=== PATIENT | female | born 1970 | race Caucasian/White ===

== ENCOUNTER 2023-09-04 22:54 | Emergency (ER) | payer OTHER, SELFPAY ==
[2023-09-04 23:04] VITALS: BP 162/98
--- NOTE | 2023-09-04 23:48 | ED.GENMED ---
History of Present Illness
<CLARENCE Baig - Last Filed: 09/05/23 01:44>
General
Chief Complaint: Fall
Source: patient and family
Time Seen by Provider: 09/04/23 23:48
Travel History
Have you had any contact with someone who has COVID-19?: No
Do you have any symptoms of coronavirus? Fever > 100 degrees, chills, cough, shortness of breath, sore throat, loss of taste or smell, muscle aches, or headache?: No
History of Present Illness
History of Present Illness:
Pt os a 52 year old female with a PMHx of diabetes presenting for a fall while at work at approximately 8:30 pm. She states she fell to her left side when trying to open a door and hit or head and her left upper body as she fell. She reports mild
headache and pins and needles from her left elbow down to her fingers. While she notes her headache is mild she feels as though her pain overall is a 10/10. She denies LOC, dizziness, N/V, vision changes, or numbness. She denies any allergies and
notes the only medication she currently take is Tizanidine PRN for her back. She notes she has chronic stage 3 kidney failure and does not follow with a PCP or record cutter. She states she believes her last A1C was 8.9 at 4 years ago but has not
been managing it as she has been uninsured. pt consumes alcohol occasionally and smokes a 1/2 PPD x 30 years. She denies TDAP within last 10 years.
Past History
<CLARENCE Baig - Last Filed: 09/05/23 01:44>
Past History
ED Past Medical History: NIDDM
Social History
Tobacco: Smoker
Alcohol: Occasional
Review of Systems
<CLARENCE Baig - Last Filed: 09/05/23 01:44>
Review of Systems
Allergies reviewed?: Yes
All Other Systems: Not applicable
Constitutional: Reports fatigue
EENT: Reports no symptoms
Respiratory: Reports no symptoms
Cardiac: Reports no symptoms
ABD/GI: Reports no symptoms
: Reports no symptoms
Musculoskeletal: Reports muscle pain and other (left arm and lateral neck soreness)
Skin: Reports no symptoms
Neurological: Reports no symptoms and headache (mild)
Endocrine: Reports no symptoms
Hematologic/Lymphatic: Reports no symptoms
Psychiatric: Reports no symptoms
Phy Exam
<CLARENCE Baig - Last Filed: 09/05/23 01:44>
General Physical Exam
General Presentation: well appearing and no apparent distress
General age: appears stated age
General Skin: warm and dry
General Habitus: normal
General Mental: alert
ENT Exam
ENT Exam: EOMI, neck supple and other (small hematoma on head at location of trauma)
Eye Exam
Eye Exam: PERRL, EOMI and cornea clear
Cardiovascular Exam
Cardiovascular Exam: regular rate/rhythm, no edema, no gallop, no murmur and normal peripheral pulses
Pulmonary Exam
Pulmonary Exam: lungs clear, no respiratory distress and chest non tender
Neurological Exam
Neurological Exam: alert, oriented x3, no sensory deficits, speech normal and cerebellum intact
Mental
Mental Status: oriented to person, oriented to place, oriented to time and responds to voice
Sensory
Sensory Exam: intact
Musculoskeletal Exam
Musculoskeletal Exam: full ROM and no edema
Skin Exam
Skin Exam: normal color, warm/dry, laceration (left scalp) and other (abrasion of left elbow)
Psychiatric Exam
Psychiatric Exam: normal mood/affect
Course
<CLARENCE Baig - Last Filed: 09/05/23 01:44>
Orders/Labs/Results
Orders:
Orders
09/05/23 00:18
Bedside Glucose- Treatment ONCE
Tetanus/Diphth/Acelpertussis [Adacel] 0.5 ml IM .ONCE ONE
Elbow, 3 view, Left [CR Elbow - Left Min 3 Views ] Urgent
Comment:
Reason For Exam: fall, left lateral elbow contusion, pain
09/05/23 00:19
CT Head W/o Iv Contrast Urgent
Comment:
Reason For Exam: fall, left parietal head trauma, headache
Abnormal Lab Results
09/05/23
01:31
POC Glucose 369 H mg/dl
(70-99)
Vital Signs
Initial and Last Documented VS:
Initial Vital Signs
Temp Pulse Resp BP Pulse Ox
97.5 F 100 16 162/98 100
09/04/23 23:04 09/04/23 23:04 09/04/23 23:04 09/04/23 23:04 09/04/23 23:04
Last Documented Vital Signs
Temp Pulse Resp BP Pulse Ox
97.5 F 100 16 162/98 100
09/04/23 23:04 09/04/23 23:04 09/04/23 23:04 09/04/23 23:04 09/04/23 23:04
<Laura Moulton, DO - Last Filed: 09/05/23 02:48>
Orders/Labs/Results
Orders:
Orders
09/05/23 00:18
Bedside Glucose- Treatment ONCE
Tetanus/Diphth/Acelpertussis [Adacel] 0.5 ml IM .ONCE ONE
Elbow, 3 view, Left [CR Elbow - Left Min 3 Views ] Urgent
Comment:
Reason For Exam: fall, left lateral elbow contusion, pain
09/05/23 00:19
CT Head W/o Iv Contrast Urgent
Comment:
Reason For Exam: fall, left parietal head trauma, headache
Abnormal Lab Results
09/05/23
01:31
POC Glucose 369 H mg/dl
(70-99)
Vital Signs
Initial and Last Documented VS:
Initial Vital Signs
Temp Pulse Resp BP Pulse Ox
97.5 F 100 16 162/98 100
09/04/23 23:04 09/04/23 23:04 09/04/23 23:04 09/04/23 23:04 09/04/23 23:04
Last Documented Vital Signs
Temp Pulse Resp BP Pulse Ox
97.5 F 100 16 162/98 100
09/04/23 23:04 09/04/23 23:04 09/04/23 23:04 09/04/23 23:04 09/04/23 23:04
<CLARENCE Baig - Last Filed: 09/05/23 01:44>
*Critical Care Note
Total Time (30-74mins, 75-104mins- exclusive of procedures): Not Applicable
<Laura Moulton DO - Last Filed: 09/05/23 02:48>
*Radiology
Radiology exam reviewed: preliminary read by ED provider (Left elbow x-rays negative for fracture.) and radiology read reviewed (CT of the head shows no acute intracranial traumatic findings. There is a small left parietal scalp hematoma.)
*Pulse Oximetry
Patient hypoxic: no
ED Attending Note
<CLARENCE Baig - Last Filed: 09/05/23 01:44>
-
Portions of this chart may have been created with voice recognition software.� Occasional wrong word or��sound alike� substitutions may have occurred due to the inherent limitations of voice recognition software.
<Laura Moulton DO - Last Filed: 09/05/23 02:48>
ED Attending Note
Patient seen and examined by attending physician: Yes
I performed the substantive portion of visit, reviewed & personally made and approve the management plan that is documented in note by myself or LAVERN.: Yes
I performed a history and physical exam of patient and discussed management with resident, I reviewed resident's note and agree with documented findings and plan of care.: Yes
ED Attending Note:
This is a 52-year-old woman who has longstanding history of diabetes as well as chronic kidney disease. Had been following with PCP and nephrology and due to chronic GI intolerance to metformin her diabetes had been treated with insulin.
Unfortunately she has not followed up with her PCP over the past few years due to lack of healthcare coverage until most recently. She has been receiving sporadic refills of tizanidine for intermittent low back pain but other than this takes no
medicines on a daily basis.
While at work tonight at [employer] she was attempting to close sliding doors and while doing so she slipped and fell onto her left side striking the left side of her head and her left elbow. She denies loss of consciousness, was able to get up and has
been ambulatory since incident. She complains of left-sided head pain with local contusion as well as left elbow and arm pain. She denies neck pain or back pain. No weakness nor numbness. She denies nausea nor vomiting, no chest pain or
palpitations no shortness of breath, no abdominal pain.
She is unsure as to her last Tdap believes this was many years ago.
TRAUMA EXAM:
VITAL SIGNS: Vital signs reviewed, cooperative
DISTRESS: No active disease
EYES: Pupils reactive, no orbital trauma
NOSE: No deformity or epistaxis
FACE AND SCALP: There is a superficial abrasion with soft tissue contusion left parietal scalp with mild to moderate local tenderness to palpation. External canals no blood
NECK: Supple nontender, full range of motion without difficulty nor pain.
BACK: Back nontender, pelvis stable to compression
RESPIRATORY: No distress, breath sounds normal, no tender chest wall
CARDIAC: No murmur, pulses equal and strong
ABDOMEN: Soft nontender bowel sounds normal
SKIN: Skin intact no bleeding, color normal
EXTREMITIES: Superficial abrasion left posterior lateral elbow with mild local tenderness to palpation. There is no soft tissue swelling. Full elbow range of motion with mildly increased pain with internal and external rotation. There is no
tenderness to the forearm nor upper arm nor wrist nor shoulder.
NEUROLOGICAL: Alert, oriented, no motor deficits. Gait is osborn and steady.
PSYCH: Mood affect normal
Patient suffered a slip and fall, left parietal head injury and left elbow contusion.
Will check CT of the head as well as left elbow x-ray.
Will update Tdap.
Parietal scalp abrasion superficial, no indication for suture repair.
Patient has longstanding history of poorly controlled diabetes, chronic kidney disease but overall nontoxic in appearance. Appears euvolemic. Denies recent weight loss or gain.
Recently obtained healthcare coverage and patient has been urged to promptly follow-up with her PCP for recheck of diabetes, chronic kidney disease and resume her medications.
09/05/2023 0247 AM
Patient continues to appear comfortable, ambulatory about exam room with steady unaided gait.
CT of the head is unremarkable as is left elbow x-ray.
Accu-Chek elevated at 369.
She remains mildly hypertensive. She does admit to significant labs and multiple medications but cannot recall the names of these medicines.
Patient has been urged to probably touch base with her PCP for follow-up of diabetes, hypertension, chronic kidney disease.
Due to history of chronic kidney disease recommend she avoid NSAIDs and instead take Tylenol as needed for pain. I have also written a prescription for a few tramadol for as needed moderate pain.
Note to be out of work over the next several days with plan to return on September 08.
Encouraged to follow-up with work health provider for recheck.
Discharge Plan
Departure
Patient Disposition: Home (Routine Discharge)
Date of Disposition: 09/05/23
Time of Disposition: 02:30
Patient with high blood pressure during this ER visit?: Yes
Condition: Good
Discharge Problem:
left parietal scalp contusion, Contusion of left elbow, initial encounter, Poorly controlled diabetes mellitus
Instructions: High Blood Sugar, Adult (DC), Head Injury in Adults (DC), Contusion (DC), Skin Abrasions (DC), Tdap vaccine, BLOOD PRESSURE
Prescriptions:
New
tramadol 50 mg tablet
50 mg PO BID PRN (Reason: Pain) Qty: 10 0RF
Referrals:
NONE,* [Family Provider] -
Stand Alone Forms: Return to Work
Activity Restrictions/Additional Instructions:
You may take Tylenol every 4 hours as needed for pain. A few tramadol have been prescribed for as needed moderate pain.
With prior history of kidney disease, recommend you avoid NSAIDs such as ibuprofen, Aleve, Advil.
Follow-up with your work health provider on Thursday for recheck.
I strongly urged you to follow-up with your primary care physician for recheck of diabetes, kidney disease, etc.
Interventions
Interventions:
*Risk Screen - Suicide Last Done: 09/04/23 23:04
*General Assessment Last Done: 09/04/23 23:04
*Neglect/Abuse Screening Last Done: 09/04/23 23:04
ED-Musculoskeletal Assessment Last Done: 09/05/23 00:20
ED- Neurological Assessment Last Done: 09/05/23 00:20
ED-Skin Assessment Last Done: 09/05/23 00:20
[2023-09-05] MEDS: ADACEL 0.5 ML IM (00:53)
[2023-09-05 01:32] LABS: Glucose - Point of Care 369 mg/dl (70-99)
[2023-09-05] MEDS: TYLENOL 1000 MG PO (02:43)
[2023-09-05 02:44] VITALS: BP 171/90
== END 2023-09-05 02:50 | disposition home or self-care (01) ==
LOC: EMR 22:54
PROVIDERS: EMERGENCY PHYSICIAN Emergency Medicine
DX: S00.03XA Contusion of scalp, initial encounter (principal); S50.02XA Contusion of left elbow, initial encounter; S09.90XA Unspecified injury of head, initial encounter; E11.22 Type 2 diabetes mellitus with diabetic chronic kidney disease; E11.65 Type 2 diabetes mellitus with hyperglycemia; W19.XXXA Unspecified fall, initial encounter; Y99.0 Civilian activity done for income or pay; Z23 Encounter for immunization; F17.210 Nicotine dependence, cigarettes, uncomplicated
CPT/HCPCS: 99284; 90471; 70450; 73080; 82962; 90715

== ENCOUNTER 2024-11-07 14:39 | Inpatient (IN) | payer OTHER, SELFPAY ==
[2024-11-07 10:34] VITALS: BP 160/80
[2024-11-07] MEDS: MAXIPIME 2000 MG IV ×2 (12:06→20:16)
[2024-11-07 12:13] VITALS: BP 156/70
[2024-11-07 12:13] LABS: % Basophils 0.9 % (0-2); % Eosinophils 1.2 % (0-6); % Immature Granulocytes 0.2 % (0-0.5); % Lymphocytes 25.4 % (20.5-51.1); % Monocytes 5.6 % (1.7-9.3); % Neutrophils 66.7 % (42.2-75.2); Absolute Basophils 0.1 10^3/uL (0-0.2); Absolute Eosinophils 0.1 10^3/uL (0-0.7); Absolute Lymphocytes 1.7 10^3/uL (1.2-3.4); Absolute Monocytes 0.4 10^3/uL (0.1-0.6); Absolute Neutrophils 4.4 10^3/uL (1.4-6.5); Hematocrit 39.2 % (37.0-47.0); Hemoglobin 13.5 g/dL (12.0-16.0); Mean Corp Hgb Conc. 34.4 g/dL (33.0-37.0); Mean Corpuscular Hgb 28.4 pg (27.0-31.0); Mean Corpuscular Volume 82.4 fL (81.0-99.0); Mean Platelet Volume 9.8 fL (7.4-10.4); Nucleated Red Blood Cells % 0 %; Platelet Count 265 10^3/uL (130-400); Red Blood Cell Count 4.76 10^6/uL (4.20-5.40); Red Cell Dist. Width 12.9 % (11.5-14.5); White Blood Cell Count 6.7 10^3/uL (4.8-10.8)
[2024-11-07] MEDS: VANCOCIN 530 MG IV (12:13)
[2024-11-07 12:24] LABS: Lactic Acid 0.8 mmol/L (0.7-2.0)
[2024-11-07 12:50] LABS: ALT (SGPT) 32 U/L (0-35); AST (SGOT) 24 U/L (14-36); Alkaline Phosphatase 116 U/L (38-126); Blood Urea Nitrogen 18 mg/dl (7-17); Calcium 9.1 mg/dl (8.4-10.2); Carbon Dioxide 28 mmol/L (22-30); Chloride 101 mmol/L (98-107); Estimated Creatinine Clearance 61 ml/min; Glucose 454 mg/dl (70-99); Sodium 134 mmol/L (135-145); Total Protein 7.3 g/dl (6.3-8.2); eGFR > 60.00
[2024-11-07 13:00] VITALS: BP 154/80
--- NOTE | 2024-11-07 13:20 | ED.GENMED ---
History of Present Illness
General
Chief Complaint: Skin Problem
Source: patient and family
Time Seen by Provider: 11/07/24 11:18
History of Present Illness
History of Present Illness:
54-year-old female initially diabetes who presents with redness in her right foot into her right leg. Patient states she was cutting her right great toe toenail recently and then noticed some inflammation that started around the great toe. She now
notices redness of her foot. Patient states that the redness got much worse starting yesterday. Patient admits that she has been off of her diabetes medications because became too expensive. She does not check her blood sugar regularly. Family
states that she has not been on the medications.
Past History
Past History
ED Past Medical History: NIDDM
ED Past Surgical History: Cholecystectomy
Social History
Tobacco: Smoker
Alcohol: Occasional
Phy Exam
Physical Exam
Physical Exam:
CONSTITUTIONAL Vital signs reviewed, Patient alert and oriented to person, place and time. Well-appearing
HEAD atraumatic, normocephalic.
EYES eyelids normal to inspection, Extraocular muscles intact, Conjunctiva normal, Sclera normal.
NECK normal range of motion, Trachea midline, no jugular venous distention.
RESP no respiratory distress
BACK No obvious deformities
UPPER EXTREMITY Gross Range of motion normal, gross motor strength normal
LOWER EXTREMITY Gross range of motion normal, Gross motor strength normal. There is redness surrounding the right great toe with some skin scaling at the base of the eponychium. There is redness that extends up the dorsum of the foot into the
right lower extremity to the mid stein. There is slight warmth.
NEURO Speech normal, No focal motor deficits include, Ana coma scale 15, Memory normal, Cranial Nerves intact to screening exam.
SKIN Skin warm, dry, and normal in color.
PSYCHIATRIC Patient oriented to person place and time, Normal affect.
Course
Orders/Labs/Results
Orders:
Orders
11/07/24 11:45
Cefepime HCl [Maxipime] 2,000 mg IV NOW STA
11/07/24 11:46
Vancomycin [Vancocin] 1,500 mg 0.9% Sodium Chloride 500 ml [Nss] 500 ml IV NOW
11/07/24 11:53
Sterile Water [Sterile Water For Injection] 10 ml .ROUTE .STK-MED ONE
11/07/24 12:02
Complete Blood Count/With Diff Urgent
Comprehensive Metabolic Panel Urgent
Lactic Acid Q4H
Comment: CANCEL 2nd LACTIC ACID IF 1st LACTIC ACID IS LESS THAN 2
Blood Culture Q30M
OCTAVIO Source: Blood/Venous
Specimen Description:
Blood Culture Q30M
OCTAVIO Source: Blood/Venous
Specimen Description:
11/07/24 13:20
0.9% Sodium Chloride 1000 ml [Nss] 1,000 ml IV BOLUS
Insulin Aspart [NOVOLOG vial] 8 units SC NOW STA
11/07/24 15:45
Lactic Acid Q4H
Comment: CANCEL 2nd LACTIC ACID IF 1st LACTIC ACID IS LESS THAN 2
Abnormal Lab Results
11/07/24
12:02
Sodium 134 L mmol/L
(135-145)
BUN 18 H mg/dl
(7-17)
Glucose 454 H* mg/dl
(70-99)
11/07/24 12:02
11/07/24 12:02
Vital Signs
Initial and Last Documented VS:
Initial Vital Signs
Temp Pulse Resp BP Pulse Ox
98.1 F 94 16 160/80 100
11/07/24 10:34 11/07/24 10:34 11/07/24 10:34 11/07/24 10:34 11/07/24 10:34
Last Documented Vital Signs
Temp Pulse Resp BP Pulse Ox
98.1 F 94 16 156/70 99
11/07/24 10:34 11/07/24 10:34 11/07/24 10:34 11/07/24 12:13 11/07/24 12:15
MDM/Problems Addressed
Differential Diagnosis Includes:
Diabetic ketoacidosis, sepsis, cellulitis, paronychia, electrolyte imbalance
MDM/Problems Addressed:
Diabetic foot infection, acute hyperglycemia
*Pulse Oximetry
Patient hypoxic: no
*Critical Care Note
Total Time (30-74mins, 75-104mins- exclusive of procedures): 30 minutes
Data Reviewed
Source: patient and family
Patient Management
Discussion with other providers: Hospitalist
Escalation/DeEscalation of care consider admission/obs:
54-year-old female presents with uncontrolled hyperglycemia as well as right foot infection that is extending up into her mid leg. Broad-spectrum IV antibiotics, blood sugar control, admit
ED Attending Note
-
Portions of this chart may have been created with voice recognition software.� Occasional wrong word or��sound alike� substitutions may have occurred due to the inherent limitations of voice recognition software.
Discharge Plan
Departure
Patient Disposition: Admit
Date of Disposition: 11/07/24
Time of Disposition: 13:21
Admit to: Med/Surg
Presentation/result/management discussed w/ accepting MD/DO: Hospitalist
Discharge Problem:
Diabetic foot infection, Acute hyperglycemia
Prescriptions:
No Action
loperamide [Imodium] 2 mg Capsule
2 mg PO Q6H PRN (Reason: loose stool)
losartan 25 mg tablet
25 mg PO DAILY@1200
rosuvastatin [Crestor] 20 mg Tablet
20 mg PO DAILY@1200
Referrals:
UNKNOWN - PT DOES,NOT KNOW [Family Provider] -
Interventions
Interventions:
*Risk Screen - Suicide Last Done: 11/07/24 12:18
*General Assessment Last Done: 11/07/24 12:18
*Neglect/Abuse Screening Last Done: 11/07/24 12:18
*ED- Fall Risk Assessment Last Done: 11/07/24 12:18
*ED COVID-19 Vaccine History Last Done: 11/07/24 12:18
ED-Musculoskeletal Assessment Last Done: 11/07/24 12:18
Discharge Date and Time
Print Language: POLISH
[2024-11-07] MEDS: NOVOLOG vial 8 UNITS SC (13:40)
[2024-11-07] MEDS: NSS 1000 IV (13:42)
--- NOTE | 2024-11-07 13:59 | HPS.HSE ---
Family Physician
-
Family Physician: NOT KNOW UNKNOWN - PT DOES
Chief Complaint
-
Rt great toe infection
History of Present Illness
54F Smoker, DMT2, HTN, HLD , hi ASCVD risk, pw redness in her right foot into her right leg. - she was cutting her right great toe toenail recently and then noticed some inflammation that started around the great toe. - now notices redness of her
foot got much worse starting yesterday.
- admits that she has been off of her diabetes medications because became too expensive.
- does not check her blood sugar regularly.
Family states that she has not been on the medications.
Medical History
Past Medical History
Past Medical History: Reports HTN, Hypercholesterolemia, NIDDM and Other (Nicotine use disorder )
Past Surgical History: Reports Cholecystectomy
Social History
Tobacco: Smoker
Alcohol: Occasional
Family History
Family History: Not pertinent
Allergies / Home Medications
Allergies reflects when Allergies were last updated in [facility].
Home Medications with original date entered in [facility]
Allergy/Medication List:
Allergies
Allergy/AdvReac Type Severity Reaction Status Date / Time
No Known Allergies Allergy Verified 11/07/24 10:37
Home Medications
loperamide 2 mg capsule 2 mg PO Q6H PRN loose stool 11/07/24
losartan 25 mg tablet 25 mg PO DAILY@119911/07/24
rosuvastatin 20 mg tablet (Crestor) 20 mg PO DAILY@119911/07/24
Review of Systems
-
Constitutional: Reports No Symptoms
EENT: Reports No Symptoms
Respiratory: Reports No Symptoms
Cardiac: Reports No Symptoms
Abdomen/GI: Reports No Symptoms
: Reports No Symptoms
Musculoskeletal: Reports See HPI
Skin: Reports No Symptoms
Neurological: Reports No Symptoms
Endocrine: Reports No Symptoms
Hematologic/Lymphatic: Reports No Symptoms
Psych: Reports No Symptoms
Physical Exam
Vital Signs
Vital Signs
Temp Pulse Resp BP Pulse Ox
98.1 F 80 18 154/80 99
11/07/24 10:34 11/07/24 13:49 11/07/24 13:49 11/07/24 13:00 11/07/24 13:45
Physical Exam
General: No Apparent Distress, Comfortable and Conversant
HEENT: NormoCephalic, Anicteric and Moist mucous membranes
Respiratory: Clear; No Wheezes, Rales or Rhonchi
Cardiac: S1/S2 and Regular Rhythm; No Murmur
Breast: Deferred by me
GI: Soft, Non Tender and Non Distended
Genito-urinary: Deferred by me
Musculoskeletal: Other (There is redness surrounding the right great toe with some skin scaling at the base of the eponychium. redness that extends up the dorsum of the foot into the right lower extremity to the mid stein pus slight warmth.)
Neuro: AO x 3 and No Motor Deficits
Psych: Calm
Laboratory Results
-
11/07/24 12:02
11/07/24 12:02
Laboratory Results
Lactic Acid 0.8 mmol/L (0.7-2.0) 11/07/24 12:02
Total Bilirubin 1.0 mg/dl (0.2-1.3) 11/07/24 12:02
AST 24 U/L (14-36) 11/07/24 12:02
ALT 32 U/L (0-35) 11/07/24 12:02
Alkaline Phosphatase 116 U/L (38-126) 11/07/24 12:02
Data Reviewed
-
Lab Data: Labs Reviewed by me
Impression/Plan
-
Vital Signs
Temp Pulse Resp BP Pulse Ox
98.1 F 80 18 154/80 99
11/07/24 10:34 11/07/24 13:49 11/07/24 13:49 11/07/24 13:00 11/07/24 13:45
Labs
11/07/24 11/07/24
12:02 15:45
WBC 6.7
Hgb 13.5
Sodium 134 L
BUN 18 H
Creatinine 0.8
eGFR > 60.00
Glucose 454 H*
Lactic Acid 0.[address] W/o Iv Contrast: There is no acute intracranial process.
CR Elbow - Left Min 3 Views: No definite fracture or dislocation. Minimal dorsal soft tissue swelling.
NO PRIOR hospitalist admission:
ASSESSMENT & PLAN
Diabetic Rt great toe SSTI with ascending cellulitis
- Non compliance with Meds due to the cost
- afebrile. Nl WCC
- BCx sent
- agree with IV CFP and IV Vanco
- XR of Rt foot
Uncontrol DM
- Initial BG 400s Reg insulin 8 units given
- add ISS moderate
Essentials HTN
- Resume Losartan 25 daily
HLD
- Resume Rosuvastatin 20mg daily
Tobacco use disorder
- cessation discussed
- declined Nicotine SHEET METAL OPERATOR
DVT Px: LMWH
Full code
IP MS
[2024-11-07 15:42] VITALS: BP 147/78
--- NOTE | 2024-11-07 15:50 | PHA.VAN.IN ---
Assessment
- Assessment
Renal Function: Appears similar to baseline (0.8)
Concomitant Antimicrobials: Cefepime
AUC Dosing Plan
- Dosing Variables
Dosing Weight (kg): 53.9
Dosing CrCl (ml/min): 61
Vd coefficient (L/kg): 0.7
- Empiric Dosing
Initial / Loading Dose: Vanco 1500mg loading administered on 11/07/24 at 1213
Maintenance Regimen: Vanco 1000mg Q24H starting 11/08/24 0600
Estimated AUC (mcg*h/mL): 495
Estimated Peak (mcg*h/mL): 36.2
Estimated Trough (mcg/ml): 10.2
Estimated Half Life (H): 12.6
- Monitoring
No levels ordered at this time: Consider in the next few days
Pharmacokinetics Vancomycin I
- -
Patient Age: 54
Patient Sex: Female
Vancomycin Day #: 1
Indication: Skin And Soft Tissue
Requesting Provider: CEDRIC
Pertinent Antimicrobial Allergies:
No known drug allergies
Height / Weight:
Height 5 ft 1 in
Actual Weight 53.9 kg
Pertinent Past Medical History: DFI
- Vital Signs / Lab Results
Temp Pulse Resp BP Pulse Ox
98.2 F 92 18 147/78 100
11/07/24 15:42 11/07/24 15:42 11/07/24 15:42 11/07/24 15:42 11/07/24 15:42
Lab Results - Hematology
11/07/24
12:02
WBC 6.7
Lab Results - Chemistry
11/07/24
12:02
BUN 18 H
Creatinine 0.8
Estimated Creat Clear 61
Albumin 4.0
11/07/24
12:02
Lactic Acid 0.8
[2024-11-07 15:55] LABS: Glucose - Point of Care 281 mg/dl (70-99)
[2024-11-07] MEDS: TYLENOL 650 MG PO (18:13)
[2024-11-07] MEDS: LOVENOX 40 MG SC (18:13)
[2024-11-07] MEDS: NOVOLOG FLEXPEN-MODERATE RESISTANCE 5 UNITS SC (18:42)
[2024-11-07] MEDS: STERILE WATER FOR INJECTION 10 ML IV (20:16)
[2024-11-07 21:26] LABS: Glucose - Point of Care 444 mg/dl (70-99)
[2024-11-07 21:56] LABS: Glucose 406 mg/dl (70-99)
[2024-11-07] MEDS: NOVOLOG FLEXPEN 10 UNITS SC (22:23)
[2024-11-07 23:16] VITALS: BP 132/79
[2024-11-08 00:35] LABS: Glucose - Point of Care 93 mg/dl (70-99)
[2024-11-08 02:44] LABS: Glucose - Point of Care 156 mg/dl (70-99)
[2024-11-08] MEDS: MAXIPIME 2000 MG IV ×3 (04:08→21:25)
[2024-11-08] MEDS: STERILE WATER FOR INJECTION 10 ML IV ×3 (04:08→21:25)
[2024-11-08] MEDS: VANCOCIN 200 IV (06:07)
[2024-11-08 06:45] LABS: % Eosinophils 1.8 % (0-6); % Immature Granulocytes 0.3 % (0-0.5); % Monocytes 6.7 % (1.7-9.3); % Neutrophils 52.2 % (42.2-75.2); Absolute Basophils 0.1 10^3/uL (0-0.2); Absolute Eosinophils 0.1 10^3/uL (0-0.7); Absolute Lymphocytes 2.4 10^3/uL (1.2-3.4); Absolute Monocytes 0.4 10^3/uL (0.1-0.6); Absolute Neutrophils 3.3 10^3/uL (1.4-6.5); Hematocrit 35.7 % (37.0-47.0); Hemoglobin 12.3 g/dL (12.0-16.0); Mean Corp Hgb Conc. 34.5 g/dL (33.0-37.0); Mean Corpuscular Hgb 28.7 pg (27.0-31.0); Mean Corpuscular Volume 83.2 fL (81.0-99.0); Mean Platelet Volume 9.9 fL (7.4-10.4); Nucleated Red Blood Cells % 0 %; Platelet Count 242 10^3/uL (130-400); Red Blood Cell Count 4.29 10^6/uL (4.20-5.40); White Blood Cell Count 6.2 10^3/uL (4.8-10.8)
[2024-11-08 07:30] LABS: Glucose - Point of Care 240 mg/dl (70-99)
[2024-11-08 07:35] VITALS: BP 163/89
--- NOTE | 2024-11-08 08:16 | PHA.VAN.FU ---
Vancomycin Assessment / Plan
- Assessment
Renal Function: No New Labs Today
WBC's are: WNL
In the past 24 hrs, patient has been: Afebrile
Concomitant Antimicrobials: cefepime
- Dosing Plan
Continue: vancomycin 1000mg q24h - first dose 11/08 0600 after 1500mg LD 11/07
- Monitoring Plan
No level(s) ordered at this time: consider levels as pt nears ss
- Follow Up
Pharmacy will continue to follow.
Vancomycin Follow UP
- -
Patient Age: 54
Patient Sex: Female
Vancomycin Day #: 2
Indication: Skin And Soft Tissue
Requesting Provider: CEDRIC
Pertinent Antimicrobial Allergies:
No known drug allergies
Height / Weight:
Height 5 ft 1 in
Actual Weight 53.9 kg
Pertinent Past Medical History: DFI
- Vital Signs / Lab Results
Temp Pulse Resp BP Pulse Ox
98.4 F 75 18 163/89 99
11/08/24 07:35 11/08/24 07:35 11/08/24 07:35 11/08/24 07:35 11/08/24 07:35
Lab Results - Hematology
11/07/24 11/08/24
12:02 05:43
WBC 6.7 6.2
Lab Results - Chemistry
11/07/24
12:02
BUN 18 H
Creatinine 0.8
Estimated Creat Clear 61
Albumin 4.0
11/07/24 11/07/24
12:02 15:45
Lactic Acid 0.8 Cancelled
[2024-11-08 09:24] LABS: Glycohemoglobin (HgbA1c) 13.8 % (4.0-5.6)
[2024-11-08] MEDS: NOVOLOG FLEXPEN-MODERATE RESISTANCE 3 UNITS SC ×2 (10:08→18:28)
[2024-11-08 11:10] VITALS: BP 113/50
[2024-11-08] MEDS: COZAAR 25 MG PO (11:43)
[2024-11-08] MEDS: CRESTOR 20 MG PO (11:43)
--- NOTE | 2024-11-08 13:11 | CM ---
manager leasing reviewed patient's chart and met with patient and patient reports that she lives with her 2 kids and their father in a 1st floor apartment, patient is independent with adl's and ambulation, patient drives, patient works, patient has
been a diabetic for 20 years, and is able to obtain medications, per patient Jardiance is covered if it is ordered by physician in a certain way.
PCP: Rixford Rose
Pharmacy: [facility]
Plan; Home when stable.
[2024-11-08 13:29] LABS: Glucose - Point of Care 469 mg/dl (70-99)
[2024-11-08 14:10] LABS: Glucose 383 mg/dl (70-99)
[2024-11-08] MEDS: NOVOLOG FLEXPEN-MODERATE RESISTANCE SC (14:50)
--- NOTE | 2024-11-08 14:51 | W.PN.HOSP.TC ---
Today's Communication/Plan
-
See plan
Assessment / Plan
Assessment / Plan
Impression:*
Left lower extremity/toe cellulitis with onychomycosis and ascending lymphangitis.
Untreated diabetes
Bilateral lower extremity pain most likely secondary to diabetic neuropathy.
Essential hypertension
Dyslipidemia
Plan:
Left lower extremity/toe cellulitis with ascending lymphangitis and onychomycosis.
No evidence for systemic infection.
Erythema and induration improving with initiation of vancomycin and cefepime.
Blood cultures negative to date.
Continue IV antibiotics for another 24 hours with plan to transition to likely Doxy and Augmentin upon discharge.
Need podiatry follow-up and onychomycosis treatment
Untreated diabetes
Hemoglobin A1c 13.8
Persistent hyperglycemia.
Start Lantus 10 units at bedtime and NovoLog 5 units AC
Continue basal bolus protocol
Continue serial Accu-Cheks
Bilateral lower extremity pain.
Suspect diabetic neuropathy
Less likely PAD and claudication given exam with good peripheral pulses and warm skin.
She has tobacco smoking disorder and remains at high risk for PAD.
Check arterial ultrasound/ZI
Start initiate gabapentin.
Essential hypertension.
Continue losartan
Monitor BP trend.
Dyslipidemia
Continue Crestor.
Tobacco use disorder.
Counseled extensively for quitting
Offered nicotine patch and declined.
Anticipated Discharge: 24 - 48 hours
Subjective/Interval History
-
Date of Service: November 08, 2024
Objective Data
-
Labs:
Laboratory Results
11/08/24 11/08/24
05:43 13:45
WBC 6.2
Hgb 12.3
Hct 35.7 L
Plt Count 242
Glucose 383 H
Vital Signs:
Vital Signs
Temp Pulse Resp BP Pulse Ox
98.4 F 75 18 113/50 77
11/08/24 07:35 11/08/24 11:43 11/08/24 07:35 11/08/24 11:43 11/08/24 11:10
I&O
11/07/24 11/08/24 11/09/24
06:59 06:59 06:59
Intake Total 200 / 200
Balance 200 / 200
Physical Exam
-
General: Well Developed and No Apparent Distress
HEENT: Normocephalic, Atraumatic and Moist Mucous Membranes
Respiratory: Clear to Auscultation
Cardiac: Regular Rhythm and S1/S2; Negative Murmur, Rub or Gallop
GI: Soft, Nontender, Nondistended and Normal Bowel Sounds; Negative Organomegaly
Rectal: Deferred by Provider
Musculoskeletal: No Clubbing, No Cyanosis and No Edema
Skin: Negative Rash
Neuro: Nonfocal/Grossly Intact
[2024-11-08] MEDS: NOVOLOG FLEXPEN 8 UNITS SC (14:53)
[2024-11-08 15:50] VITALS: BP 126/64
[2024-11-08] MEDS: NEURONTIN 100 MG PO (16:00)
[2024-11-08 17:58] LABS: Glucose - Point of Care 245 mg/dl (70-99)
[2024-11-08] MEDS: NOVOLOG FLEXPEN 5 UNITS SC (18:28)
[2024-11-08] MEDS: LOVENOX 40 MG SC (18:33)
[2024-11-08] MEDS: NEURONTIN PO (22:02)
[2024-11-08 23:34] LABS: Glucose - Point of Care 204 mg/dl (70-99)
[2024-11-08 23:45] VITALS: BP 147/82
[2024-11-08] MEDS: LANTUS 0.1 UNITS SC (23:45)
[2024-11-09] MEDS: STERILE WATER FOR INJECTION 10 ML IV ×2 (04:02→16:26)
[2024-11-09] MEDS: MAXIPIME 2000 MG IV ×2 (04:02→16:01)
[2024-11-09] MEDS: VANCOCIN 200 IV (06:06)
[2024-11-09 07:00] VITALS: BP 148/66
[2024-11-09 07:32] LABS: Glucose - Point of Care 280 mg/dl (70-99)
[2024-11-09] MEDS: NEURONTIN PO (09:00)
--- NOTE | 2024-11-09 10:09 | CM ---
Patient seen at bedside
US completed
patient states to be dc today
offered VN - patient declined
PLAN: home, declines VN
to transport
--- NOTE | 2024-11-09 10:24 | W.PN.HOSP.TC ---
Today's Communication/Plan
-
Pending ZI
Likely plan for discharge later today on oral antibiotics
Assessment / Plan
Assessment / Plan
NAD
Scleral Anicteric
MMM
No JVD
CTABL
RRR, S1/S2
Soft, NT, ND, BS+
Warm, Dry
Right lower extremity erythema has completely resolved.
Right curate hallux noted to have mycotic nail with skin peeling. Nail is bruised. However there is no ulcerations drainage or discharge noted
AAOx3
Calm
Impression:*
Left lower extremity/toe cellulitis with onychomycosis and ascending lymphangitis.
Untreated diabetes
Bilateral lower extremity pain most likely secondary to diabetic neuropathy.
Essential hypertension
Dyslipidemia
Plan:
Left lower extremity/toe cellulitis with ascending lymphangitis and onychomycosis.
No evidence for systemic infection as afebrile and no white count.
Erythema and induration improving with initiation of vancomycin and cefepime.
Blood cultures negative to date.
Continue IV antibiotics for another 24 hours with plan to transition to likely Doxy and Augmentin upon discharge to complete 10-day course
Need podiatry follow-up and onychomycosis treatment, additionally sent pictures to podiatry of foot via [facility]
Untreated diabetes
Hemoglobin A1c 13.8
Persistent hyperglycemia.
Increasing Lantus 15 units and NovoLog 7 units
Interested in metformin. Interested in metformin. Will need outpatient endocrinology follow-up
Continue basal bolus protocol
Continue serial Accu-Cheks
Bilateral lower extremity pain.
Suspect diabetic neuropathy
Less likely PAD and claudication given exam with good peripheral pulses and warm skin.
She has tobacco smoking disorder and remains at high risk for PAD.
Check arterial ultrasound/ZI
Start initiate gabapentin.
Essential hypertension.
Continue losartan
Monitor BP trend.
Dyslipidemia
Continue Crestor.
Tobacco use disorder.
Counseled extensively for quitting
Offered nicotine patch and declined.
Anticipated Discharge: Today
Subjective/Interval History
-
Date of Service: November 09, 2024
Seen and examined. No new complaints. No acute overnight events
Objective Data
-
Vital Signs:
Vital Signs
Temp Pulse Resp BP Pulse Ox
98.0 F 77 16 148/66 99
11/09/24 07:00 11/09/24 07:00 11/09/24 07:00 11/09/24 07:00 11/09/24 07:00
I&O
11/08/24 11/09/24 11/10/24
06:59 06:59 06:59
Intake Total 200 / 200 960 / 960 200 / 200
Balance 200 / 200 960 / 960 200 / 200
[2024-11-09] MEDS: NOVOLOG FLEXPEN-MODERATE RESISTANCE 5 UNITS SC (10:38)
[2024-11-09] MEDS: NOVOLOG FLEXPEN 5 UNITS SC (10:39)
[2024-11-09 15:00] VITALS: BP 117/91
[2024-11-09 15:00] LABS: Glucose - Point of Care 245 mg/dl (70-99)
[2024-11-09] MEDS: NOVOLOG FLEXPEN-MODERATE RESISTANCE 3 UNITS SC (15:59)
[2024-11-09] MEDS: NOVOLOG FLEXPEN 7 UNITS SC (15:59)
[2024-11-09] MEDS: CRESTOR 20 MG PO (16:01)
[2024-11-09] MEDS: COZAAR 25 MG PO (16:01)
--- NOTE | 2024-11-09 16:03 | W.DCSUMMARY ---
Addendum entered and electronically signed by Adam Marks MD 11/15/24 08:45:
cellulitis is related to/associated with/due to diabetes type 2
Original Note:
Discharge Summary
Discharge Data
Date of Admission: 11/07/24
Date of Discharge: 11/09/24
-
Pending Results: No
Hospital Course
54F Smoker, DMT2, HTN, HLD
Presented with right lower extremity cellulitis extending from the great toe upwards.� Started on IV antibiotics.� X-ray foot did not demonstrate evidence of osteomyelitis.� There is no open wounds to suspect a deeper infection.� Blood cultures and
wound cultures were negative.� Pictures were sent to podiatry on-call recommended outpatient follow-up.� Will be discharged home with doxycycline and Augmentin.
Additionally, should be noted A1c of 13.8.� Will be initiated on insulin long and short acting insulin.� Continue Accu-Cheks.� Follow-up with PCP and oceanography teacher for further adjustment of insulin dosing.� Was not interested in metformin.
ZI
IMPRESSION:
1. Normal ankle brachial indices and toe brachial indices on each side.
2. Minimal arterial plaque on each side, without focal significant arterial stenosis demonstrated on either side.
Please stop smoking
Discharge Plan
-
Patient Disposition: Home (Routine Discharge)
Discharge Diagnosis/Procedures: RLE cellulitis
Diet: As tolerated, Low Cholesterol, Diabetic, Carb Controlled and No added salt
Activity: As tolerated
Activity Restrictions/Additional Instructions:
Presented with right lower extremity cellulitis extending from the great toe upwards.� Started on IV antibiotics.� X-ray foot did not demonstrate evidence of osteomyelitis.� There is no open wounds to suspect a deeper infection.� Blood cultures and
wound cultures were negative.� Pictures were sent to podiatry on-call recommended outpatient follow-up.� Will be discharged home with doxycycline and Augmentin.
Additionally, should be noted A1c of 13.8.� Will be initiated on insulin long and short acting insulin.� Continue Accu-Cheks.� Follow-up with PCP and oceanography teacher for further adjustment of insulin dosing.� Was not interested in metformin.
ZI
IMPRESSION:
1. Normal ankle brachial indices and toe brachial indices on each side.
2. Minimal arterial plaque on each side, without focal significant arterial stenosis demonstrated on either side.
Please stop smoking
Referrals:
Delfino Arguello MD [Consulting Staff, Endocrinology] - in one to two weeks
Germain Sidhu MD [Active, Podiatry] - 11/18/24
UNKNOWN - PT DOES,NOT KNOW [Family Provider]
Prescriptions:
New
doxycycline hyclate 100 mg capsule
100 mg PO BID Qty: 20 0RF
amoxicillin-pot clavulanate [Augmentin] 500-125 mg tablet
1 tab PO BID Qty: 20 0RF
(DME) Accu-Chek Guide test strips Strip
Qty: 200 0RF
Rx Instructions:
As Directed
(DME) lancets [Accu-Chek Softclix Lancets] Misc
Qty: 200 0RF
Rx Instructions:
As Directed
(DME) insulin syringe-needle U-100 [Insulin Syringe] 1 mL 29 gauge x 1/2' Syringe
Qty: 100 0RF
Rx Instructions:
As Directed
insulin aspart U-100 [Novolog FlexPen U-100 Insulin] 100 unit/mL (3 mL) Insulin Pen
7 unit SC AC Qty: 5 0RF
insulin glargine [Basaglar KwikPen U-100 Insulin] 100 unit/mL (3 mL) Insulin Pen
15 unit SC DAILY Qty: 5 0RF
(DME) blood-glucose meter [Accu-Chek Guide Glucose Meter] Misc
Qty: 1 0RF
Rx Instructions:
As Directed
Continued
loperamide 2 mg Capsule
2 mg PO Q6H PRN (Reason: loose stool)
losartan 25 mg tablet
25 mg PO DAILY@1200
rosuvastatin [Crestor] 20 mg Tablet
20 mg PO DAILY@1200
Discharge Orders:
Discharge Patient (As Directed); Ordered 11/09/24
Ordered By: Adam Marks
Discharge Date and Time
Print Language: [place]ESE
--- NOTE | 2024-11-09 16:07 | PHA.VAN.FU ---
Vancomycin Assessment / Plan
- Assessment
Renal Function: No New Labs Today
WBC's are: WNL
In the past 24 hrs, patient has been: Afebrile
Concomitant Antimicrobials: cefepime
- Dosing Plan
Continue: Vanc 1000mg Q24H
- Monitoring Plan
No level(s) ordered at this time: discharge plans noted
- Follow Up
Pharmacy will continue to follow.
Vancomycin Follow UP
- -
Patient Age: 54
Patient Sex: Female
Vancomycin Day #: 3
Indication: Skin And Soft Tissue
Requesting Provider: Dr. Figueroa
Pertinent Antimicrobial Allergies:
No known drug allergies
Height / Weight:
Height 5 ft 1 in
Actual Weight 53.9 kg
Pertinent Past Medical History: DFI
- Vital Signs / Lab Results
Temp Pulse Resp BP Pulse Ox
98.0 F 88 18 117/91 99
11/09/24 15:00 11/09/24 15:00 11/09/24 15:00 11/09/24 15:00 11/09/24 15:00
Lab Results - Hematology
11/07/24 11/08/24
12:02 05:43
WBC 6.7 6.2
Lab Results - Chemistry
11/07/24
12:02
BUN 18 H
Creatinine 0.8
Estimated Creat Clear 61
Albumin 4.0
11/07/24 11/07/24
12:02 15:45
Lactic Acid 0.8 Cancelled
Microbiology Results
11/07/24 12:02 Blood Culture - Preliminary
Blood/Venous No Growth in 48 hours- Final report to follow
11/07/24 12:02 Blood Culture - Preliminary
Blood/Venous No Growth in 48 hours- Final report to follow
--- NOTE | 2024-11-09 16:15 | DOWNTIME ---
There was a [employer] Client [employer]er Downtime on 11/09/2024 from 1230 to 11/09/2024 at 1550. Downtime documentation of patient's care, including medication administrations, has been reconciled in the electronic record per guidelines. Refer to the
patient's paper chart under the miscellaneous tab to see printed paper medication records and downtime forms.
--- NOTE | 2024-11-11 10:05 | PN.CDI ---
CDI
- -
CDI:
Physician Documentation Request
Admit Date: 11/07/24 14:39
Dear Doctor Kendrick,
Patient admitted with right lower extremity cellulitis. History of DM 2.
H&P states 'admits that she has been off of her diabetes medications because became too expensive. - does not check her blood sugar regularly....uncontrolled DM'
Hemoglobin A1c 13.8
Please clarify if a relationship exist between these conditions:
Yes, cellulitis is related to/associated with/due to diabetes type 2
No, cellulitis is not related to/associated with/due to diabetes type 2
Unable to determine
Use of terms such as suspected, likely, concern for, or probable (associated with a specific diagnosis that is being evaluated, monitored, or treated as if it exists) are acceptable and can be coded in the inpatient setting, when documented at the
time of discharge.
Thank you,
America Lima RN, BSN
CDI Specialist
tiger text
Please use your independent medical judgment in providing your response.
== END 2024-11-09 17:04 | disposition home or self-care (01) | DRG 638 ==
LOC: 4 WEST ACU 14:39
PROVIDERS: Internal Medicine; Nurse Practitioner Gerontology; ADMITTING PHYSICIAN Internal Medicine; ATTENDING PHYSICIAN Hospitalist; EMERGENCY PHYSICIAN Emergency Medicine
DX: E11.628 Type 2 diabetes mellitus with other skin complications (principal); L03.115 Cellulitis of right lower limb; B35.1 Tinea unguium; E78.00 Pure hypercholesterolemia, unspecified; E11.65 Type 2 diabetes mellitus with hyperglycemia; F17.200 Nicotine dependence, unspecified, uncomplicated; I10 Essential (primary) hypertension; Z79.4 Long term (current) use of insulin; Z91.148 Patient's other noncompliance with medication regimen for other reason
CPT/HCPCS: 73620; 80053; 82947; 82962; 83036; 83605; 85025; 87040; 93922; 93925; 96372; 96374; 96375; 99291